=== PATIENT | male | born 1940 | race Caucasian/White ===

== ENCOUNTER 2021-01-04 09:55 | Emergency (ER) | payer MEDICARE, OTHER, SELFPAY ==
--- NOTE | ~2021-01-04 | XR_ITS ---
EXAMINATION: XR knee RT min 4V DATE: 01/04/2021 11:45 INDICATION: Right knee osteoarthritis. TECHNIQUE: 5 views of right knee were obtained. COMPARISON: None. FINDINGS: Bone alignment is normal. No fracture. There is mild tricompartmental osteoarthritis. No kn ee joint effusion. There is prepatellar soft tissue swelling. There are surgical clips in the medial lower leg. IMPRESSION: 1. Mild right knee osteoarthritis. 2. Prepatellar soft tissue swelling, consistent with bursitis. Reviewed, dictated and finalized at location B.
--- NOTE | ~2021-01-04 | XR_ITS ---
EXAMINATION:[id number] DATE: 01/04/2021 11:45 INDICATION: Neck pain, arthritis TECHNIQUE: AP, lateral, lateral swimmers and odontoid views of the cervical spine are provided. COMPARISON: None FINDINGS: Alignment is normal. The odontoid is intact. No fracture is identified. The vertebral body heights are normal. There is moderate loss of intervertebral disc space height at C6-7 and mild loss of intervertebral disc space height at C3-4, and C5-6. Small degenerative osteophytes project from th e anterior endplates of multiple vertebral bodies. There is moderate to severe facet and uncovertebra l joint osteoarthritis throughout the cervical spine There are surgical clips in the left neck. Preve rtebral soft tissues are normal. Median sternotomy wires and mediastinal surgical clips are seen, lik sandy from prior coronary artery bypass grafting. IMPRESSION: 1. Moderate cervical spondylosis without acute findings. Reviewed, dictated and finalized at location A.
--- NOTE | ~2021-01-04 | XR_ITS ---
EXAMINATION: XR knee LT min 4V DATE: 01/04/2021 11:46 INDICATION: Left knee arthritis. TECHNIQUE: 5 views of left knee were obtained. COMPARISON: None. FINDINGS: Bone alignment is normal. No fracture. There is mild tricompartmental osteoarthritis. No kn ee joint effusion. IMPRESSION: 1. Mild left knee osteoarthritis. Reviewed, dictated and finalized at location B.
[2021-01-04 10:09] VITALS: BP 153/48; PULSE 77; RESP 16; TEMP 36.8; O2SAT 98
--- NOTE | 2021-01-04 10:32 | ED.LOWEXIN ---
HPI - Extremity Injury (Lower) General Chief Complaint: Extremity Injury, Lower Stated Complaint: Neck/knee pain Time Seen by Provider: 01/04/21 09:59 Source: patient and family (daughter ) Mode of arrival: ambulatory Limitations: no limitations History of Present Illness HPI Narrative: 80-year-old male presents to [facility] accompanied by his daughter for complaints of right knee pain and swelling for the past 6 months, left knee pain and swelling for the past 3 months and right lateral neck pains intermittently for the past 3 months. Patient reports that he was evaluated [facility] late last week and was given x-ray orders at that time. Daughter reports that they attempted to get the x-rays completed today but were unable to find a parking spot so came here for x-rays. Patient has been applying icy hot to the right side of his neck as well as a heating pad. Patient has been taking ibuprofen 200 mg every 4 hours with minimal relief. Daughter reports that patient has been instructed to avoid taking Tylenol but she is unsure of the exact reasoning. Patient denies injury to his knees or neck. Patient denies numbness, tingling, fever, body aches, chills, nausea, vomiting or diarrhea. Onset (ago): month(s) (3-6) Other symptoms: none Treatments prior to arrival: cold therapy, heart therapy and NSAIDS Related Data Home Medications Medication Instructions Recorded Confirmed amlodipine 10 mg PO DAILY 01/04/21 01/04/21 aspirin 81 mg PO DAILY 01/04/21 01/04/21 atorvastatin 80 mg PO HS 01/04/21 01/04/21 lisinopril 10 mg PO DAILY 01/04/21 01/04/21 metformin 1,000 mg PO BID 01/04/21 01/04/21 metoprolol tartrate 75 mg PO Q12H 01/04/21 01/04/21 saxagliptin 5 mg PO DAILY 01/04/21 01/04/21 Allergies Allergy/AdvReac Type Severity Reaction Status Date / Time No Known Allergies Allergy Verified 01/04/21 10:22 Review of Systems Constitutional: Constitutional: Denies chills, Denies fatigue, Denies fever(s) and Denies weakness Cardiovascular: Cardiovascular: Denies chest pain, Denies rapid heart rate, Denies radiating jaw, neck or arm pain and Denies slow heart rate Respiratory: Respiratory: Denies cough and Denies dyspnea Musculoskeletal: Musculoskeletal: Reports arthralgias and Reports joint swelling Comments: bilateral knees and right side of neck Integumentary/Breasts: Skin/Breast: Denies pruritus and Denies rash Neurologic: Denies dizziness [facility] Past Medical History Medical History (Updated 01/04/21 @ 12:10 by Kassy Urbano APRN) Diabetes Hyperlipidemia Hypertension Comments At time of signature, I agree with nursing past medical, surgical, social and family history. There is no relevant family history pertinent to the presenting complaint. Exam Const: General: healthy appearing and no acute distress Orientation/consciousness: patient oriented x3 Neck: Neck: normal visual inspection, no lymphadenopathy and no meningeal signs Other: mild pain to right trapezius upon palpation. No pain noted to C-spine upon palpation. There is no swelling, bruising or erythema noted Resp: Effort & Inspection: normal respiratory effort, not tachypneic and no use of accessory muscles Cardio: Rate: regular rate, not bradycardic and not tachycardic Rhythm: regular rhythm Skin: General skin exam: normal color Wounds: no wounds Neuro: General: patient oriented x3, moves all extremities and no meningeal signs Extrem: Other: 4cm area of swelling noted to right patella and 2 cm area of swelling noted to left patella indicating bursitis. There is no erythema, bruising or open wounds noted Psych: Appearance: grossly normal Mental Status: mental status grossly normal Affect: normal affect Attitude: cooperative Thought content: Yes Normal thought content present Course Vital Signs Vital signs: Vital Signs Temperature 36.8 C 01/04/21 10:09 Pulse Rate 77 01/04/21 10:09 Respiratory Rate 16 01/04/21 10:09 Blood Pre
== END 2021-01-04 12:13 | disposition home or self-care (01) ==
PROVIDERS: Emergency Provider Nurse Practitioner Family
DX: M70.42 Prepatellar bursitis, left knee (principal); M70.41 Prepatellar bursitis, right knee; E11.9 Type 2 diabetes mellitus without complications; E78.5 Hyperlipidemia, unspecified; I10 Essential (primary) hypertension; Z79.82 Long term (current) use of aspirin
CPT/HCPCS: 72040; 73564; 99214; G0463

== ENCOUNTER 2021-02-12 12:23 | Emergency (ER) | payer MEDICARE, OTHER, SELFPAY ==
--- NOTE | 2021-02-12 12:29 | ED.SKABFB ---
HPI - Skin/Abscess/Foreign Bdy General Chief complaint: Skin/Abscess/Foreign Body Stated complaint: Possible Shingles Time Seen by Provider: 02/12/21 12:36 Source: patient and RN notes reviewed Mode of arrival: ambulatory Limitations: no limitations History of Present Illness HPI narrative: 80-year-old male presents with concern for irritating rash. Reports symptoms started a little less than a week ago with irritation to the area and then blisters appeared. Reports blisters and red spots continue to appear on his right flank turning around to the groin. Reports he has been using hydrogen peroxide on the blisters. He denies fever, body aches, chills, sweats, malaise. Denies swollen lips, swollen tongue, trouble breathing. Reports he has not had a shingles vaccine. MD complaint: rash Related Data Home Medications Medication Instructions Recorded Confirmed amlodipine 10 mg PO DAILY 01/04/21 02/12/21 aspirin 81 mg PO DAILY 01/04/21 02/12/21 atorvastatin 80 mg PO HS 01/04/21 02/12/21 lisinopril 10 mg PO DAILY 01/04/21 02/12/21 metformin 1,000 mg PO BID 01/04/21 02/12/21 metoprolol tartrate 75 mg PO Q12H 01/04/21 02/12/21 saxagliptin 5 mg PO DAILY 01/04/21 02/12/21 prednisolone acetate 1 drp OPHTHALMIC (EYE) QID 02/12/21 02/12/21 Allergies Allergy/AdvReac Type Severity Reaction Status Date / Time No Known Allergies Allergy Verified 01/04/21 10:22 Review of Systems Review of Systems: Narrative: CONSTITUTIONAL: Denies malaise, chills, sweats, or fever. ENT: Denies rhinorrhea, congestion, sinus pain, otalgia or sore throat. CARDIOVASCULAR: Denies chest pain, palpitations, or edema. RESPIRATORY: Denies cough or dyspnea. SKIN: Reports irritating rash to the right flank extending to the right groin MUSCULOSKELETAL: Denies myalgia. NEUROLOGIC: Denies numbness, weakness, or headache. All systems reviewed & are unremarkable except as noted in HPI and below PMFSH Past Medical History Medical History (Updated 02/12/21 @ 12:45 by Rita Patel NP) Diabetes Hyperlipidemia Hypertension Social History Social History Gender identity (if verbalized by the patient): Male Comments At time of signature, agree with nursing past medical, surgical, social and family history. There is no relevant family history pertinent to the presenting complaint Exam Narrative: Exam Narrative: GENERAL: Well-appearing, well-nourished, and in no acute distress. HEAD: Normocephalic, atraumatic. EYES: PERRLA, conjunctivae clear, and EOMI. ENT: Mucous membranes moist. Oropharynx without edema, erythema or lesions. NECK: Supple. No lymphadenopathy CHEST: Clear to auscultation. No respiratory distress. HEART: Regular rate and rhythm. SKIN: Warm, dry. Zosteriform rash noted to the right flank, right torso, yeah and right groin NEURO: Alert and oriented x3. PSYCH: Normal mood and affect Course Course Emergency Course: Patient is aware of diagnosis, understands and agrees to treatment plan. Anticipatory guidance given. Patient agrees to follow-up as directed and is aware of reasons to seek care at the emergency department. Portions of this record may have been created with voice recognition software Vital Signs Vital signs: Reviewed. MDM - Skin/Abscess/Foreign Bdy MDM Narrative Medical decision making narrative: Does not appear at this time to be erythema multiforme, bullous, SJS, TEN; no evidence at this time to suggest RMSF, endocarditis or Lyme disease; patient looks well, nontoxic and is tolerating oral intake; no neurologic signs or symptoms; no headache, photophobia or neck pain; afebrile; appropriate for initial outpatient treatment; discussed the importance of follow-up, patient agrees; question, viral exanthema, contact dermatitis, allergic dermatitis, eczema, urticaria, shingles. No soft palate or uvula edema, no tongue, lip edema or other mucosal involvement, no respiratory compro
[2021-02-12 12:30] VITALS: BP 124/53; PULSE 76; RESP 20; TEMP 36.5; O2SAT 97
== END 2021-02-12 12:52 | disposition home or self-care (01) ==
PROVIDERS: Emergency Provider Nurse Practitioner
DX: B02.9 Zoster without complications (principal); E11.9 Type 2 diabetes mellitus without complications; E78.5 Hyperlipidemia, unspecified; I10 Essential (primary) hypertension; Z79.82 Long term (current) use of aspirin
CPT/HCPCS: 99213; G0463